=== PATIENT | male | born 1975 | race Caucasian/White ===

== ENCOUNTER 2017-02-07 18:53 | Emergency (ER) | payer SELFPAY ==
[~2017-02-07] VITALS: Ht 177.8 cm; Wt 74.5 kg
[2017-02-07 19:12] VITALS: Ht 177.8 cm; Wt 74.5 kg
[2017-02-08] MEDS ORDERED: FIORICET PO (12:06)
[2017-02-08] MEDS ORDERED: CIPR500T4 PO (22:32)
== END 2017-02-07 21:38 | disposition left against medical advice (07) ==
LOC: E/R 18:53
DX: Z53.21 Procedure and treatment not carried out due to patient leaving prior to being seen by health care provider (principal)

== ENCOUNTER 2017-02-08 07:47 | Emergency (ER) | payer OTHER ==
[~2017-02-08] VITALS: Ht 167.6 cm; Wt 75.0 kg
[2017-02-08 07:50] VITALS: Ht 167.6 cm; Wt 75.0 kg
--- NOTE | 2017-02-08 08:40 | RADRPT ---
PROCEDURE: Chest Radiograph. CLINICAL INDICATION: Chest and abdominal pain. TECHNIQUE: Single frontal chest radiograph. COMPARISON: None available FINDINGS: The cardiomediastinal silhouette is within normal limits. No infiltrate or effusion is seen. Th e bones are intact. IMPRESSION: 1. Unremarkable chest radiograph. RPTAT: KK .Shane Lundy MD, MD Date Time Electronically viewed and signed by .Shane Lundy MD, on 02/08/2017 08:40 .B/
[2017-02-08 08:56] LABS: ADD SCAN DIFF NO
[2017-02-08 09:00] LABS: ABNORMAL IP MESSAGE 1; BASOPHIL # 0.1 10^3/ul (0.0-0.1); BASOPHILS % 1.2 % (0.0-2.0); EOSINOPHILS % 0.1 % (0.0-7.0); HEMATOCRIT 45.5 % (42.0-52.0); HEMOGLOBIN 15.2 g/dl (14.0-18.0); LYMPHOCYTES # 2.1 10^3/ul (0.8-2.9); LYMPHOCYTES % 21.4 % (15.0-51.0); MEAN CORPUSCULAR HGB CONC 33.4 g/dl (32.0-37.0); MEAN CORPUSCULAR VOLUME 86.8 fl (82.0-101.0); MEAN PLATELET VOLUME 10.7 fl (7.4-10.4); MONOCYTE # 1.5 10^3/ul (0.3-0.9); MONOCYTES % 15.2 % (0.0-11.0); NEUTROPHIL # 6.1 10^3/ul (1.6-7.5); NEUTROPHILS % 61.6 % (39.0-77.0); PLATELET COUNT 281 10^3/UL (140-415); RED BLOOD COUNT 5.24 10^6/ul (4.70-6.10); RED CELL DISTRIBUTION WIDTH 11.7 % (11.5-14.5); WHITE BLOOD COUNT 9.9 10^3/ul (4.8-10.8)
--- NOTE | 2017-02-08 09:08 | ERD ---
ER Documentation Chief Complaint Date/Time DATE: 02/08/17 TIME: 08:53 Chief Complaint Sent from for evaluation TIA and CT of the head HPI 41-year-old male who presents to the emergency room with multiple complaints. It appears he was sent from an urgent care clinic for CT of the head for unclear reasons. The patient describes approximately 1 week of subjective fevers. He is unsure when his last seizure was but it has not been for several days. He states that he did have a sore throat last week but none today. He denies any significant cough rhinorrhea. No rash, no neck stiffness. He does describe a mild, gradual onset headache that is right sided but only 2 out of 10. The patient went to an urgent care clinic and was complaining of difficulty speaking and was sent to the emergency room. The patient states for approximately 4 days now he is having slow speech. He states that he can comprehend and speak clearly but this is slower than his baseline. ROS All systems reviewed and are negative except as per history of present illness. Medications Home Meds Active Scripts Acetamin/Butalbital/Caffeine* (Fioricet*) [id number] Tab, 1 TAB PO Q6H Y for PAIN, #30 TAB Prov:LEWIS MONTENEGRO MD 02/08/17 Allergies Allergies: Coded Allergies: amoxicillin (Unverified Allergy, Unknown, FLUSH RASH, 02/08/17) FmHx Family History: No diabetes Physical Exam Vitals Vital Signs Date Time Temp Pulse Resp B/P Pulse Ox O2 Delivery O2 Flow Rate FiO2 02/08/17 10:30 82 18 132/78 100 Room Air 02/08/17 07:50 98.3 93 20 124/92 98 Physical Exam General: Well developed, well nourished, no acute distress, slower speech however quick response time and appears somewhat inconsistent Head: Normocephalic, atraumatic. Eyes: Pupils equally reactive, EOM intact ENT: Moist mucous membranes Neck: Supple, no lymphadenopathy Respiratory: Lungs clear bilaterally, no distress Cardiovascular: RRR, no murmurs, rubs, or gallops Abdominal: Soft, non-tender, non-distended, no peritoneal signs : Deferred MSK: No edema, no unilateral swelling, 5/5 strength Neurologic: Alert and oriented, moving all extremities, slightly slow speech however articulate without dysarthria, no focal weakness, no cerebellar signs, no pronator drift, normal rapid alternating movements, steady gait, no meningismus Skin: No rash Psych: Normal mood Result Diagram: 02/08/17 0830 02/08/17 0830 Results 24 hrs Laboratory Tests Test 02/08/17 08:30 White Blood Count 9.910^3/ul Red Blood Count 5.2410^6/ul Hemoglobin 15.2g/dl Hematocrit 45.5% Mean Corpuscular Volume 86.8fl Mean Corpuscular Hemoglobin 29.0pg Mean Corpuscular Hemoglobin Concent 33.4g/dl Red Cell Distribution Width 11.7% Platelet Count 19476^3/UL Mean Platelet Volume 10.7fl Neutrophils % 61.6% Lymphocytes % 21.4% Monocytes % 15.2% Eosinophils % 0.1% Basophils % 1.2% Nucleated Red Blood Cells % 0.0/100WBC Neutrophils # 6.110^3/ul Lymphocytes # 2.110^3/ul Monocytes # 1.510^3/ul Eosinophils # 0.010^3/ul Basophils # 0.110^3/ul Nucleated Red Blood Cells # 0.010^3/ul Prothrombin Time 13.4Sec Prothrombin Time Ratio 1.0 INR International Normalized Ratio 1.02 Activated Partial Thromboplast Time 72.8Sec Sodium Level 135mmol/L Potassium Level 4.1mmol/L Chloride Level 95mmol/L Carbon Dioxide Level 30mmol/L Anion Gap 14 Blood Urea Nitrogen 19mg/dl Creatinine 1.27mg/dl Glucose Level 119mg/dl Calcium Level 9.4mg/dl Procedures/MDM EKG, MONITORS, & DIAGNOSTIC IMAGING: EKG: I reviewed and interpreted a 12-lead EKG. Rhythm: Normal sinus rhythm Ectopy: None Intervals: No abnormalities ST segments: No elevations or depressions T waves: No contiguous inversions Chest x-ray: I reviewed and interpreted a 1 view of the chest Mediastinum: No enlargement Cardiac silhouette: No cardiomegaly Airspace: Clear lung busby bilaterally without evidence of pneumothorax Bones: No evidence of fracture MRI brain: IMPRESSION: 1. No evidence of acute intracranial pathology. 2. Minimal nonspecific white matter change, which may reflect chronic small vessel ischemic change, possibly sequela of complicated migraine. RPTAT: VV LAB INTERPRETATION: No leukocytosis MEDICAL DECISION MAKING: The patient presents with an odd constellation of symptoms including subjective fevers, remote sore throat, mild headache and slow speech. His speech is inconsistent. He is seems to have a very quick response time however his speech is somewhat slow however the rate is inconsistent. He has no dysarthria and is speaking clearly and articulate. The patient does not have any other posterior circulation symptoms including no cerebellar symptoms, normal rapid alternating movements and steady gait without ataxia. It is unclear what is causing this, consider conversion disorder versus alternative intracranial process. The patient has no risk factors for stroke, therefore stroke seems extremely unlikely. Given subjective fevers I could consider possible intracranial abscess though again this seems unlikely given no significant headache no fever no rash and no leukocytosis. I believe the best course is to obtain an MRI of the brain to rule out these processes. The patient was referred for a CT of the brain but I do not believe this will provide significant enough information. The patient continues to be well-appearing in the emergency room and will be observed with repeat examinations. ER COURSE: The patient continues to be well-appearing, he continues to walk about the emergency room and does go to the bathroom without difficulty. The patient's speech pattern seems to be improving with time in the emergency room. His MRI is negative. Consider possible migraine as noted by the radiologist. The patient will be started on a course of Fioricet and referred to a primary care physician and neurologist. Return precautions discussed. The patient continues to be very well-appearing here. I kept the patient and/or family informed of laboratory and diagnostic imaging results throughout the emergency room course. DISPOSITION PLAN: We discussed follow up with the patient's primary care doctor within 24 to 48 hours as needed. We also discussed return to the emergency room for worsening symptoms or worsening condition. Outpatient referral: Neurology Discharge Medications: Fioricet Departure Diagnosis: Primary Impression: Slow rate of speech Additional Impression: Atypical migraine Condition: Stable LEWIS MONTENEGRO MD Feb 08, 2017 09:08
[2017-02-08 09:18] LABS: INR 1.02; PROTIME 13.4 Sec (12.2-14.2)
[2017-02-08 09:41] LABS: PARTIAL THROMBOPLASTIN TIME 72.8 Sec (25.0-35.0)
[2017-02-08 09:52] LABS: CALCIUM 9.4 mg/dl (8.4-10.2); CREATININE 1.27 mg/dl (0.61-1.24); POTASSIUM 4.1 mmol/L (3.5-5.1)
--- NOTE | 2017-02-08 11:25 | RADRPT ---
PROCEDURE: MRI Brain without contrast. CLINICAL INDICATION: Headache, slurred speech, slowed speech, remote fever, balance issues TECHNIQUE: Multiplanar MRI of the brain without contrast was performed on a 3.0 T scanner with the following sequences obtained: T1-weighted, T2-weighted/FLAIR, diffusion weighted (with ADC map), GR E. COMPARISON: None available FINDINGS: No acute/recent ischemic infarction or intracranial hemorrhage / blood degradation products are iden tified. No extra-axial fluid collection is seen. There is no mass effect. No midline shift is identified. The ventricles and sulci are within normal limits for size and configuration. A minimal area of increased T2-weighted FLAIR signal intensity is identified in the deep white matte r in the right frontal region, nonspecific. Flow voids are identified in the proximal intracranial arteries and dural sinuses suggesting patency . The mastoid air cells and paranasal sinuses are grossly clear. IMPRESSION: 1. No evidence of acute intracranial pathology. 2. Minimal nonspecific white matter change, which may reflect chronic small vessel ischemic change, possibly sequela of complicated migraine. RPTAT: VV .Sachin Archuleta MD, MD Date Time Electronically viewed and signed by .Sachin Archuleta MD, on 02/08/2017 11:25 .O/
[2017-02-08] MEDS ORDERED: FIORICET PO (12:06)
[2017-02-08 12:10] VITALS: BP 129/72; PULSE 80; RESP 18; TEMP 98.1
[2017-02-08] MEDS ORDERED: CIPR500T4 PO (22:32)
== END 2017-02-08 12:10 | disposition home or self-care (01) ==
LOC: E/R 07:47
DX: R47.89 Other speech disturbances (principal); G43.809 Other migraine, not intractable, without status migrainosus; R40.2142 Coma scale, eyes open, spontaneous, at arrival to emergency department; R40.2252 Coma scale, best verbal response, oriented, at arrival to emergency department; R40.2362 Coma scale, best motor response, obeys commands, at arrival to emergency department; R07.9 Chest pain, unspecified
CPT/HCPCS: 70551; 71010; 80048; 85025; 85610; 85730; 86703; 93005

== ENCOUNTER 2017-02-08 20:42 | Inpatient (IN) | payer OTHER ==
[~2017-02-08] VITALS: Ht 177.8 cm; Wt 75.0 kg
[~2017-02-08 20:42] MED LIST: FIORICET PO
--- NOTE | 2017-02-08 22:31 | ERD ---
ER Documentation Chief Complaint Date/Time DATE: 02/08/17 TIME: 22:30 Chief Complaint urinary retention , no urine output for 3 days HPI This 41-year-old male patient presents to emergency department with complaints of urinary retention and incontinence the last 3 days. Patient was seen and had a complete workup including MRI of brain earlier today complaint of this slow slurred speech. Patient was reportedly sent from urgent care for CT of the head. Patient has remote history of 1 week of fevers without sore throat rhinorrhea rash neck stiffness. Sent home with instructions to follow-up with primary care physician. Patient reports that he does not have a primary physician at this time. Reports that symptoms have been worsening, and that his bladder is distended, painful, reports urinary incontinence. Patient reports loose stools. No fecal incontinence. Denies any difficulty breathing speech is slow, motor function is jerky. Chart review ECG with documentation of normal sinus rhythm with no ST elevation or depressions. Chest x-ray reviewed by Dr. Uribe shows no mediastinum enlargement, no cardiomegaly, lungs clear with no evidence of pneumothorax MRI of the brain showed no evidence of acute intracranial pathology, minimal nonspecific white matter change which may reflect chronic small vessel ischemia change, possible sequela from complicated migraine. Laboratory findings without leukocytosis. ROS All systems reviewed and are negative except as per history of present illness. Medications Home Meds Active Scripts Ciprofloxacin Hcl* (Ciprofloxacin Hcl*) 500 Mg Tablet, 500 MG PO BID for 10 Days , TAB Prov:KODY,MELODY 02/08/17 Acetamin/Butalbital/Caffeine* (Fioricet*) [id number] Tab, 1 TAB PO Q6H Y for PAIN, #30 TAB Prov:LEWIS MONTENEGRO MD 02/08/17 Allergies Allergies: Coded Allergies: amoxicillin (Unverified Allergy, Unknown, FLUSH RASH, 02/08/17) PMhx/Soc Medical and Surgical Hx: pt denies Medical Hx, pt denies Surgical Hx History of Surgery: No Anesthesia Reaction: No Hx Neurological Disorder: No Hx Respiratory Disorders: No Hx Cardiac Disorders: No Hx Psychiatric Problems: No Hx Miscellaneous Medical Probl: No Hx Alcohol Use: Yes (OCCASSIONAL) Hx Substance Use: No Hx Tobacco Use: No Smoking Status: Never smoker Physical Exam Vitals Vital Signs Date Time Temp Pulse Resp B/P Pulse Ox O2 Delivery O2 Flow Rate FiO2 02/08/17 23:10 98.3 74 16 128/85 99 Room Air 02/08/17 20:43 99.5 88 20 131/84 98 Vitals stable, triage notes reviewed Physical Exam Const: [] Head: Atraumatic Eyes: Normal Conjunctiva ENT: Normal External Ears, Nose and Mouth. Neck: Full range of motion..~ No meningismus. Resp: Clear to auscultation bilaterally Cardio: Regular rate and rhythm, no murmurs Abd: Abdomen distended, low abdominal and pelvic tenderness, no CVA tenderness, Snow catheter placed by registered nurse, 1400 cc of urine removed and sent for culture and sensitivity, and tox screen. Skin: No petechiae or rashes Back: No midline or flank tenderness Ext: No cyanosis, or edema Neur: Awake and alert Psych: Normal Mood and Affect Result Diagram: 02/08/170 02/08/172309 Results 24 hrs Laboratory Tests Test 02/08/17 22:00 02/08/17 23:10 02/08/17 23:20 Urine Opiates Screen Negative Urine Barbiturates Negative Urine Amphetamines Screen Negative Urine Benzodiazepines Screen Negative Urine Cocaine Screen Negative Urine Cannabinoids Negative White Blood Count 10.010^3/ul Red Blood Count 4.9210^6/ul Hemoglobin 14.6g/dl Hematocrit 42.4% Mean Corpuscular Volume 86.2fl Mean Corpuscular Hemoglobin 29.7pg Mean Corpuscular Hemoglobin Concent 34.4g/dl Red Cell Distribution Width 11.4% Platelet Count 41024^3/UL Mean Platelet Volume 10.6fl Neutrophils % 66.4% Lymphocytes % 18.3% Monocytes % 13.3% Eosinophils % 0.3% Basophils % 1.0% Nucleated Red Blood Cells % 0.0/100WBC Neutrophils # 6.610^3/ul Lymphocytes # 1.810^3/ul Monocytes # 1.310^3/ul Eosinophils # 0.010^3/ul Basophils # 0.110^3/ul Nucleated Red Blood Cells # 0.010^3/ul Prothrombin Time 13.6Sec Prothrombin Time Ratio 1.1 INR International Normalized Ratio 1.04 Activated Partial Thromboplast Time 60.4Sec Sodium Level 132mmol/L Potassium Level 3.7mmol/L Chloride Level 93mmol/L Carbon Dioxide Level 28mmol/L Anion Gap 15 Blood Urea Nitrogen 16mg/dl Creatinine 1.18mg/dl Glucose Level 108mg/dl Lactic Acid Level 1.0mmol/L Calcium Level 9.2mg/dl Total Bilirubin 0.8mg/dl Direct Bilirubin 0.00mg/dl Indirect Bilirubin 0.8mg/dl Aspartate Amino Transf (AST/SGOT) 14IU/L Alanine Aminotransferase (ALT/SGPT) 28IU/L Alkaline Phosphatase 57IU/L Ammonia < 9umol/l Troponin I < 0.012ng/ml Total Protein 7.9g/dl Albumin 4.9g/dl Globulin 3.00g/dl Albumin/Globulin Ratio 1.63 Salicylates Level < 1.0mg/dl Acetaminophen Level < 10.0ug/ml Ethyl Alcohol Level < 10.0mg/dl Bedside Glucose 115mg/dL Drug tox screen negative Procedures/MDM This pleasant 41-year-old male patient presents to emergency department for distended abdomen, and urinary retention, with incontinence. History of neurologic changes presenting as slow speech, slow jerking movements patient has no prior history of a neurological disorder. guillain buitrago, myasthenia gravis, MS in working part of diagnoses. Urinary tract infection, benign prostate hypertrophy also considered, a Snow catheter was placed in usual technique by registered nurse 1400 cc of urine removed from bladder. Patient reports comfort. Snow catheter remains in place. Case discussed with supervising physician Dr. Caldwell . Original plan was to DC home with leg bag and Cipro. After MD evaluation plan to admit for neurologic consult. All care turned over to Dr Rogers and Dr Anthony at this time for admission. Departure Diagnosis: Primary Impression: Retention of urine Patient Instructions: Urinary Retention, RON Cronin Feb 08, 2017 22:31
[2017-02-08] MEDS ORDERED: CIPR500T4 PO (22:32)
[2017-02-08 22:34] LABS: BARBITURATES Negative (NEGATIVE); BENZODIAZEPINES Negative (NEGATIVE); CANNABINOIDS Negative (NEGATIVE); COCAINE Negative (NEGATIVE); OPIATES Negative (NEGATIVE)
[2017-02-08 23:38] LABS: BASOPHIL # 0.1 10^3/ul (0.0-0.1); EOSINOPHILS % 0.3 % (0.0-7.0); HEMATOCRIT 42.4 % (42.0-52.0); HEMOGLOBIN 14.6 g/dl (14.0-18.0); LYMPHOCYTES # 1.8 10^3/ul (0.8-2.9); LYMPHOCYTES % 18.3 % (15.0-51.0); MEAN CORPUSCULAR HEMOGLOBIN 29.7 pg (29.0-33.0); MEAN CORPUSCULAR HGB CONC 34.4 g/dl (32.0-37.0); MEAN CORPUSCULAR VOLUME 86.2 fl (82.0-101.0); MEAN PLATELET VOLUME 10.6 fl (7.4-10.4); MONOCYTE # 1.3 10^3/ul (0.3-0.9); MONOCYTES % 13.3 % (0.0-11.0); NEUTROPHIL # 6.6 10^3/ul (1.6-7.5); NEUTROPHILS % 66.4 % (39.0-77.0); PLATELET COUNT 278 10^3/UL (140-415); RED BLOOD COUNT 4.92 10^6/ul (4.70-6.10); RED CELL DISTRIBUTION WIDTH 11.4 % (11.5-14.5)
--- NOTE | 2017-02-08 23:51 | RADRPT ---
PROCEDURE: XR Chest. CLINICAL INDICATION: Dyspnea and sepsis TECHNIQUE: AP Portable chest. COMPARISON: 02/08/2017 08:27 a.m. chest x-ray FINDINGS: The soft tissues and bones are normal. No focal infiltrates, masses, or effusions are noted. The m ediastinum and heart are normal. No pneumothorax is present. IMPRESSION: 1. No radiographic evidence for acute cardiopulmonary disease RPTAT: HD .Maria L Freitas MD, Date Time Electronically viewed and signed by .Maria L Freitas MD, on 02/08/2017 23:50 .C/
[2017-02-08 23:54] LABS: INR 1.04; PROTIME 13.6 Sec (12.2-14.2); PT RATIO 1.1
[2017-02-08 23:55] LABS: PARTIAL THROMBOPLASTIN TIME 60.4 Sec (25.0-35.0)
[2017-02-08 23:59] LABS: ALANINE AMINOTRANSFERASE 28 IU/L (13-69); ALBUMIN 4.9 g/dl (3.3-4.9); ALBUMIN/GLOBULIN RATIO 1.63; ALKALINE PHOSPHATASE 57 IU/L (42-121); ANION GAP 15 (8-16); ASPARTATE AMINO TRANSFERASE 14 IU/L (15-46); BILIRUBIN,INDIRECT 0.8 mg/dl (0-1.1); BILIRUBIN,TOTAL 0.8 mg/dl (0.2-1.3); BLOOD UREA NITROGEN 16 mg/dl (7-20); CALCIUM 9.2 mg/dl (8.4-10.2); CARBON DIOXIDE 28 mmol/L (21-31); CHLORIDE 93 mmol/L (97-110); CREATININE 1.18 mg/dl (0.61-1.24); GLUCOSE 108 mg/dl (70-220); POTASSIUM 3.7 mmol/L (3.5-5.1); SODIUM 132 mmol/L (135-144); TOTAL PROTEIN 7.9 g/dl (6.1-8.1)
[2017-02-09] VITALS (15 sets, daily range): BP systolic 119–149; BP diastolic 79–90; PULSE 68–84; RESP 17–20; TEMP 98.3; Ht 177.8 cm; Wt 75.0 kg
[2017-02-09 00:15] LABS: ACETAMINOPHEN < 10.0 ug/ml (10.0-30.0); AMMONIA < 9 umol/l (9-30); ETHANOL < 10.0 mg/dl; SALICYLATE < 1.0 mg/dl (5.0-30.0); TROPONIN-I < 0.012 ng/ml (0.00-0.12)
[2017-02-09] MEDS ORDERED: ONDANSETRON 4 MG INJ IV PRN (01:30)
[2017-02-09 01:39] LABS: ADD SCAN DIFF NO
[2017-02-09] MEDS: SOD CHLORIDE 0.9% 1,000 ML IV SCH ×4 (03:30→19:35)
--- NOTE | 2017-02-09 04:42 | ERA ---
ER Documentation Chief Complaint Date/Time DATE: 02/09/17 TIME: 23:00 Chief Complaint urinary retention , slurred speech HPI The patient is a 41-year-old male, presenting to the ER because of inability to urinate for the last 3 days, inability to walk well, and slurred speech for the last 3 days. He was seen at urgent care yesterday where he had a negative brain CT and refer to ER for evaluation. He was seen earlier today in the ER and had a negative brain MRI. He was then discharged. He came back to the ER because of inability to urinate and slurred speech and unable to walk well. He had fever about 2 weeks ago that went away by itself. He complains of minimal headache, denies facial pain, neck pain, chest pain, abdominal pain, vomiting, diarrhea, constipation. He does not smoke or drink. He was also seen today by the PA Past medical/surgical history: None ROS All systems reviewed and are negative except as per history of present illness. Medications Home Meds Active Scripts Ciprofloxacin Hcl* (Ciprofloxacin Hcl*) 500 Mg Tablet, 500 MG PO BID for 10 Days , TAB Prov:RON GATES 02/08/17 Acetamin/Butalbital/Caffeine* (Fioricet*) [id number] Tab, 1 TAB PO Q6H Y for PAIN, #30 TAB Prov:LEWIS MONTENEGRO MD 02/08/17 Allergies Allergies: Coded Allergies: amoxicillin (Unverified Allergy, Unknown, FLUSH RASH, 02/08/17) PMhx/Soc Medical and Surgical Hx: pt denies Medical Hx, pt denies Surgical Hx History of Surgery: No Anesthesia Reaction: No Hx Neurological Disorder: No Hx Respiratory Disorders: No Hx Cardiac Disorders: No Hx Psychiatric Problems: No Hx Miscellaneous Medical Probl: No Hx Alcohol Use: Yes (occasional) Hx Substance Use: No Hx Tobacco Use: No Smoking Status: Never smoker Physical Exam Vitals Vital Signs Date Time Temp Pulse Resp B/P Pulse Ox O2 Delivery O2 Flow Rate FiO2 02/08/17 23:10 98.3 74 16 128/85 99 Room Air 02/08/17 20:43 99.5 88 20 131/84 98 Physical Exam Const: No acute distress. Head: Atraumatic. Eyes: Normal Conjunctiva. ENT: Normal External Ears, Nose and Mouth. Neck: Full range of motion. No meningismus. Resp: Clear to auscultation bilaterally. Cardio: Regular rate and rhythm. Abd: Soft, non distended, normal bowel sounds, non tender. Skin: No petechiae or rashes. Back: No midline or flank tenderness. Ext: No cyanosis, or edema. Neur: Awake and alert. No focal deficit, slurred speech Psych: Normal Mood and Affect. Result Diagram: 02/08/17 2310 02/08/17 2310 Results 24 hrs Laboratory Tests Test 02/08/17 22:00 02/08/17 23:10 02/08/17 23:20 Urine Opiates Screen Negative Urine Barbiturates Negative Urine Amphetamines Screen Negative Urine Benzodiazepines Screen Negative Urine Cocaine Screen Negative Urine Cannabinoids Negative White Blood Count 10.010^3/ul Red Blood Count 4.9210^6/ul Hemoglobin 14.6g/dl Hematocrit 42.4% Mean Corpuscular Volume 86.2fl Mean Corpuscular Hemoglobin 29.7pg Mean Corpuscular Hemoglobin Concent 34.4g/dl Red Cell Distribution Width 11.4% Platelet Count 76825^3/UL Mean Platelet Volume 10.6fl Neutrophils % 66.4% Lymphocytes % 18.3% Monocytes % 13.3% Eosinophils % 0.3% Basophils % 1.0% Nucleated Red Blood Cells % 0.0/100WBC Neutrophils # 6.610^3/ul Lymphocytes # 1.810^3/ul Monocytes # 1.310^3/ul Eosinophils # 0.010^3/ul Basophils # 0.110^3/ul Nucleated Red Blood Cells # 0.010^3/ul Prothrombin Time 13.6Sec Prothrombin Time Ratio 1.1 INR International Normalized Ratio 1.04 Activated Partial Thromboplast Time 60.4Sec Sodium Level 132mmol/L Potassium Level 3.7mmol/L Chloride Level 93mmol/L Carbon Dioxide Level 28mmol/L Anion Gap 15 Blood Urea Nitrogen 16mg/dl Creatinine 1.18mg/dl Glucose Level 108mg/dl Lactic Acid Level 1.0mmol/L Calcium Level 9.2mg/dl Total Bilirubin 0.8mg/dl Direct Bilirubin 0.00mg/dl Indirect Bilirubin 0.8mg/dl Aspartate Amino Transf (AST/SGOT) 14IU/L Alanine Aminotransferase (ALT/SGPT) 28IU/L Alkaline Phosphatase 57IU/L Ammonia < 9umol/l Troponin I < 0.012ng/ml Total Protein 7.9g/dl Albumin 4.9g/dl Globulin 3.00g/dl Albumin/Globulin Ratio 1.63 Salicylates Level < 1.0mg/dl Acetaminophen Level < 10.0ug/ml Ethyl Alcohol Level < 10.0mg/dl Bedside Glucose 115mg/dL Procedures/[place] [address] Radiology Main Line: [phone] DIAGNOSTIC IMAGING REPORT Patient: NANCY COREA : 1975 Age: 41 Sex: M MR #: [id number] DOS: 02/08/17 2301 Ordering MD: LENA ZUNIGA MD Location: [facility] Room/Bed: PROCEDURE: XR Chest. CLINICAL INDICATION: Dyspnea and sepsis TECHNIQUE: AP Portable chest. COMPARISON: 02/08/2017 08:27 a.m. chest x-ray FINDINGS: The soft tissues and bones are normal. No focal infiltrates, masses, or effusions are noted. The mediastinum and heart are normal. No pneumothorax is present. IMPRESSION: 1. No radiographic evidence for acute cardiopulmonary disease RPTAT: [facility] .Maria L Freitas MD, Date Time Electronically viewed and signed by .Maria L Freitas MD, MD on 02/08/2017 23: 50 .C/ CC: LENA ZUNIGA MD EKG: Read by emergency physician Rate/Rhythm: Normal Sinus Rhythm 71 beats/min QRS, ST, T-waves: No ST elevation, no T inversion Impression: Normal EKG MEDICAL MAKING DECISION: The patient is a 41-year-old male, presenting with acute urinary retention, acute slurred speech and acute ataxia of unclear etiology. He was treated with Snow catheter that drained out about 1500 cc of urine with spontaneous relief The differential diagnoses considered include but are not limited to normal partial hydrocephalus, encephalitis, meningitis, CVA Departure Diagnosis: Primary Impression: Retention of urine Additional Impressions: Slurred speech Ataxia Condition: Stable Patient Instructions: Urinary Retention, Male Additional Instructions: I discussed the findings with the patient. I discussed the patient with his physician Dr. Rosa who was made aware of the lab, the treatment, the patient condition. The patient is admitted to telemetry for further evaluation The patient's blood pressure was elevated (>120/80) but appears stable without evidence of hypertension emergency or urgency. The patient was counseled about the risks of hypertension and urged to pursue outpatient monitoring and therapy within a week with their primary care physician. SHANTA DALY MD Feb 09, 2017 04:42
[2017-02-09 07:29] LABS: BASOPHIL # 0.1 10^3/ul (0.0-0.1); BASOPHILS % 1.3 % (0.0-2.0); EOSINOPHILS # 0.1 10^3/ul (0.0-0.5); EOSINOPHILS % 1.5 % (0.0-7.0); HEMATOCRIT 39.9 % (42.0-52.0); HEMOGLOBIN 13.7 g/dl (14.0-18.0); LYMPHOCYTES % 29.7 % (15.0-51.0); MEAN CORPUSCULAR HEMOGLOBIN 29.5 pg (29.0-33.0); MEAN CORPUSCULAR HGB CONC 34.3 g/dl (32.0-37.0); MEAN CORPUSCULAR VOLUME 85.8 fl (82.0-101.0); MEAN PLATELET VOLUME 11.5 fl (7.4-10.4); MONOCYTES % 14.7 % (0.0-11.0); NEUTROPHIL # 3.6 10^3/ul (1.6-7.5); NEUTROPHILS % 52.4 % (39.0-77.0); PLATELET COUNT 228 10^3/UL (140-415); RED BLOOD COUNT 4.65 10^6/ul (4.70-6.10); RED CELL DISTRIBUTION WIDTH 11.4 % (11.5-14.5); WHITE BLOOD COUNT 6.9 10^3/ul (4.8-10.8)
[2017-02-09 07:33] LABS: ADD SCAN DIFF NO
[2017-02-09 08:02] LABS: ALBUMIN 4.2 g/dl (3.3-4.9); ALBUMIN/GLOBULIN RATIO 1.55; BILIRUBIN,INDIRECT 0.7 mg/dl (0-1.1); BILIRUBIN,TOTAL 0.7 mg/dl (0.2-1.3); CALCIUM 8.9 mg/dl (8.4-10.2); CHOL/HDL RATIO 7.1 RATIO; CREATININE 0.9 mg/dl (0.61-1.24); POTASSIUM 4.4 mmol/L (3.5-5.1); TOTAL PROTEIN 6.9 g/dl (6.1-8.1)
[2017-02-09 08:23] LABS: PROSTATE SPECIFIC ANTIGEN 0.4 ng/ml (0.0-4.0)
[2017-02-09] MEDS: ACETAMINOPHEN 325 MG TAB PO PRN ×2 (09:11→22:36)
--- NOTE | 2017-02-09 13:11 | HP ---
Date/Time of Note Date/Time of Note DATE: 02/09/17 TIME: 13:05 Assessment/Plan VTE Prophylaxis VTE Prophylaxis Intervention: anti-embolic stocking Lines/Catheters IV Catheter Type (from Nrs): Peripheral IV Urinary Cath still in place: Yes Reason Cath still needed: urinary retention Assessment/Plan Assessment/Plan 1. neuro: patient with speech difficulty, uncelar etiology, negative MR yesterday. Possibly post viral? 2. urinary retention unclear cause, awit UA,, cont lamar 9b) obtain MRI of spinal cord to eval (c) ?syringomyelia of medulla accounts for speech and urinary and gait symptoms (c) obtain b12, folate, chloé, ra, hiv testing 3. gait instability, check PT, 4. prolonged PTT, check 50:50 mix, ?cardiolipin ab ?phospholipid ab HPI/ROS Admit Date/Time Admit Date/Time Feb 09, 2017 at 01:11 Hx of Present Illness patient presents with difficulty with slow NOT slurred speech. He has difficulty speakin gin the usual pace, but words are clear and he articulates what he means to say in addition he has utrinary retention for the last 3 days, s/p lamar. He denies dysuria, denies stool retention, denies saddlea anasthesia, states that there are soem difficulties with walkiong and feeling unsteady but no falls he does acjknowledge a 1 week history of undiagnosed high fevers which spontaenously resolved aound 1 week ago. PMH/Family/Social Past Medical History nil Past Surgical History nil Family History Significant Family History: no pertinent family hx Social History unemployed lives at home with femal partner Alcohol Use: rarely Smoking Status: Never smoker Drug Use: none Exam/Review of Systems Vital Signs Vitals Vital Signs Date Time Temp Pulse Resp B/P Pulse Ox O2 Delivery O2 Flow Rate FiO2 02/09/17 12:38 84 02/09/17 11:38 98.2 18 122/83 97 02/09/17 01:31 Room Air Intake and Output 02/08/17 02/08/17 02/09/17 15:00 23:00 07:00 Intake Total 50 ml Output Total 3000 ml Balance -2950 ml Exam Constitutional: alert, oriented Psych: no complaints Head: normocephalic Eyes: EOMI, nl conjunctiva, nl lids ENMT: nl external ears & nose, nl lips & teeth, nl nasal mucosa & septum Neck: non-tender, supple Respiratory: clear to auscultation Cardiovascular: regular rate and rhythm Gastrointestinal: non-tender, soft Musculoskeletal: nl extremities to inspection, nl gait and stance Neurological: RELIEF DOCKING MASTER II-XII intact, nl mental status, other (some difficulty with pace of speech that seems to improve during the interview, no truncal instability appreciated) Skin: rash or lesions Labs Result Diagram: 02/09/1763202/09/17632 Medications Medications Current Medications Sodium Chloride (NS) 1,000 ml @ 125 mls/hr Q8H IV Last administered on 10:11; Admin Dose 125 MLS/HR; Start 02/09/17 at 01:30 Acetaminophen (Tylenol Tab) 650 mg Q4H PRN PO FEVER Last administered on 09:11; Admin Dose 650 MG; Start 02/09/17 at 01:30 Ondansetron HCl (Zofran Inj) 4 mg Q4H PRN IV NAUSEA AND/OR VOMITING; Start at 01:30 ZAK FAYE MD Feb 09, 2017 13:11
[2017-02-09 13:40] LABS: ADD UMIC NO; UR ASCORBIC ACID NEGATIVE (NEGATIVE); UR BILIRUBIN (Dip) NEGATIVE (NEGATIVE); UR BLOOD (Dip) NEGATIVE (NEGATIVE); UR CLARITY CLEAR (CLEAR); UR COLOR YELLOW (YELLOW); UR GLUCOSE (Dip) NEGATIVE (NEGATIVE); UR KETONES (Dip) NEGATIVE (NEGATIVE); UR LEUKOCYTE ESTERASE (Dip) NEGATIVE Leu/ul (NEGATIVE); UR NITRITE (Dip) NEGATIVE (NEGATIVE); UR SPECIFIC GRAVITY (Dip) 1.008 (1.003-1.030); UR TOTAL PROTEIN (Dip) NEGATIVE (NEGATIVE); UR UROBILINOGEN (Dip) 1+ mg/dL (NEGATIVE)
[2017-02-09 14:22] LABS: BASOPHIL # 0.1 10^3/ul (0.0-0.1); BASOPHILS % 1.2 % (0.0-2.0); EOSINOPHILS # 0.1 10^3/ul (0.0-0.5); HEMATOCRIT 40.4 % (42.0-52.0); HEMOGLOBIN 13.6 g/dl (14.0-18.0); LYMPHOCYTES % 29.3 % (15.0-51.0); MEAN CORPUSCULAR HEMOGLOBIN 29.2 pg (29.0-33.0); MEAN CORPUSCULAR HGB CONC 33.7 g/dl (32.0-37.0); MEAN CORPUSCULAR VOLUME 86.7 fl (82.0-101.0); MEAN PLATELET VOLUME 10.8 fl (7.4-10.4); MONOCYTES % 14.5 % (0.0-11.0); NEUTROPHIL # 3.6 10^3/ul (1.6-7.5); PLATELET COUNT 227 10^3/UL (140-415); RED BLOOD COUNT 4.66 10^6/ul (4.70-6.10); RED CELL DISTRIBUTION WIDTH 11.6 % (11.5-14.5); WHITE BLOOD COUNT 6.9 10^3/ul (4.8-10.8)
[2017-02-09 14:32] LABS: ALANINE AMINOTRANSFERASE 21 IU/L (13-69); ALBUMIN 4.1 g/dl (3.3-4.9); ALBUMIN/GLOBULIN RATIO 1.46; ALKALINE PHOSPHATASE 48 IU/L (42-121); ANION GAP 17 (8-16); ASPARTATE AMINO TRANSFERASE 12 IU/L (15-46); BILIRUBIN,INDIRECT 0.7 mg/dl (0-1.1); BILIRUBIN,TOTAL 0.7 mg/dl (0.2-1.3); BLOOD UREA NITROGEN 13 mg/dl (7-20); CALCIUM 9.1 mg/dl (8.4-10.2); CARBON DIOXIDE 28 mmol/L (21-31); CHLORIDE 99 mmol/L (97-110); CREATININE 0.93 mg/dl (0.61-1.24); GLUCOSE 101 mg/dl (70-220); POTASSIUM 4.2 mmol/L (3.5-5.1); SODIUM 140 mmol/L (135-144); TOTAL PROTEIN 6.9 g/dl (6.1-8.1)
[2017-02-09 14:42] LABS: ADD SCAN DIFF NO; PARTIAL THROMBOPLASTIN TIME 55.1 Sec (25.0-35.0)
[2017-02-09 15:53] LABS: FOLATE 7.4 ng/ml (2.8-20.0)
[2017-02-09 17:21] LABS: RAPID PLASMA REAGIN NONREACTIVE (NR); RHEUMATOID FACTOR NEGATIVE (NEGATIVE)
[2017-02-09 19:42] LABS: 50/50 PTT 1 HOUR 51.4 Sec
[2017-02-09 19:47] LABS: 50/50 PTT IMMED 44.5 Sec
[2017-02-10] VITALS (12 sets, daily range): BP systolic 125–142; BP diastolic 80–87; PULSE 57–78; RESP 17–21
[2017-02-10] MEDS: SOD CHLORIDE 0.9% 1,000 ML IV SCH (04:22)
--- NOTE | 2017-02-10 12:45 | PN ---
Date/Time of Note Date/Time of Note DATE: 02/10/17 TIME: 12:44 Assessment/Plan VTE Prophylaxis VTE Prophylaxis Intervention: other Lines/Catheters IV Catheter Type (from Nrsg): Peripheral IV Urinary Cath still in place: Yes Reason Cath still needed: urinary retention Assessment/Plan Assessment/Plan 1. speech difficulty improved today, cont to observe 2. urinary retention, cont lamar, await neuro and MRI evals 3. able to walk some with walker and PT, cont current Subjective 24 Hr Interval Summary Free Text/Dictation no complaints, Exam/Review of Systems Vital Signs Vitals Vital Signs Date Time Temp Pulse Resp B/P Pulse Ox O2 Delivery O2 Flow Rate FiO2 02/10/17 12:00 57 02/10/17 11:26 97.7 18 125/82 95 02/09/17 01:31 Room Air Intake and Output 02/09/17 02/09/17 02/10/17 15:00 23:00 07:00 Intake Total 500 ml 1700 ml Output Total 1000 ml Balance 500 ml 700 ml Exam Constitutional: alert Respiratory: clear to auscultation Cardiovascular: regular rate and rhythm Results Result Diagram: 02/09/17 1400 02/09/17 1400 Results 24 hrs Laboratory Tests Test 02/09/17 13:00 02/09/17 14:00 Urine Color YELLOW Urine Clarity CLEAR Urine pH 7.0 Urine Specific [place] 1.008 Urine Ketones NEGATIVE Urine Nitrite NEGATIVE Urine Bilirubin NEGATIVE Urine Urobilinogen 1+ H Urine Leukocyte Esterase NEGATIVE Urine Hemoglobin NEGATIVE Urine Glucose NEGATIVE Urine Total Protein NEGATIVE White Blood Count 6.9 Red Blood Count 4.66 L Hemoglobin 13.6 L Hematocrit 40.4 L Mean Corpuscular Volume 86.7 Mean Corpuscular Hemoglobin 29.2 Mean Corpuscular Hemoglobin Concent 33.7 Red Cell Distribution Width 11.6 Platelet Count 227 Mean Platelet Volume 10.8 H Neutrophils % 52.0 Lymphocytes % 29.3 Monocytes % 14.5 H Eosinophils % 2.0 Basophils % 1.2 Nucleated Red Blood Cells % 0.0 Neutrophils # 3.6 Lymphocytes # 2.0 Monocytes # 1.0 H Eosinophils # 0.1 Basophils # 0.1 Nucleated Red Blood Cells # 0.0 Activated Partial Thromboplast Time 55.1 H Mix PTT Normal Plasma Immediate 44.5 Mix PTT Normal Plasma 1 Hour 51.4 Sodium Level 140 Potassium Level 4.2 Chloride Level 99 Carbon Dioxide Level 28 Anion Gap 17 H Blood Urea Nitrogen 13 Creatinine 0.93 Glucose Level 101 Calcium Level 9.1 Total Bilirubin 0.7 Direct Bilirubin 0.00 Indirect Bilirubin 0.7 Aspartate Amino Transf (AST/SGOT) 12 L Alanine Aminotransferase (ALT/SGPT) 21 Alkaline Phosphatase 48 Total Protein 6.9 Albumin 4.1 Globulin 2.80 Albumin/Globulin Ratio 1.46 Vitamin B12 Level > 1000 H Folate 7.4 Rheumatoid Factor Screen NEGATIVE Rapid Plasma Reagin NONREACTIVE HIV (1&2) Antibody NEGATIVE Medications Medications Current Medications Sodium Chloride (NS) 1,000 ml @ 125 mls/hr Q8H IV Last administered on 04:22; Admin Dose 125 MLS/HR; Start 02/09/17 at 01:30 Acetaminophen (Tylenol Tab) 650 mg Q4H PRN PO FEVER Last administered on 22:36; Admin Dose 650 MG; Start 02/09/17 at 01:30 Ondansetron HCl (Zofran Inj) 4 mg Q4H PRN IV NAUSEA AND/OR VOMITING; Start at 01:30 ZAK FAYE MD Feb 10, 2017 12:45
[2017-02-10 13:45] LABS: ANA SCREEN NEGATIVE (NEGATIVE)
--- NOTE | 2017-02-10 15:25 | RADRPT ---
PROCEDURE: MRI Cervical spine without contrast CLINICAL INDICATION: Urinary retention TECHNIQUE: An MRI of the cervical spine was performed utilizing the following sequences: Sagittal T1 weighted, sagittal and axial T2 weighted, axial GREand sagittal STIR. COMPARISON: None FINDINGS: There is a normal cervical lordosis. No acute vertebral compression fracture. No diffuse marrow re placing process. The cervical cord demonstrates normal signal intensity. C2-3: The disk is preserved height. No significant disk protrusion, spinal canal or foraminal sten osis. C3-4: The disk is preserved height. No significant disk protrusion, spinal canal or foraminal randal nosis. C4-5: The disk is preserved height. No spinal canal stenosis. Uncovertebral osteophytes with Mini mal right greater than left foraminal narrowing. C5-6: The disk is preserved height. No significant disk protrusion, spinal canal or foraminal steno sis. C6-7: The disk is preserved height. No significant disk protrusion, spinal canal or foraminal sten osis. C7-T1: The disk is preserved height. No significant disk protrusion, spinal canal or foraminal randal nosis. Paraspinal soft tissues are unremarkable. IMPRESSION: Minimal right greater than left foraminal narrowing C4-5. No spinal canal stenosis. No evidence of cord compression or cord edema. RPTAT: AA .Bandar Chowdhury MD, Date Time Electronically viewed and signed by .Bandar Chowdhury MD, MD on 02/10/2017 15:25 .T/
--- NOTE | 2017-02-10 15:33 | RADRPT ---
PROCEDURE: MRI Thoracic spine without contrast CLINICAL INDICATION: There are tissue TECHNIQUE: An MRI of the thoracic spine was performed on a high resolution MRI scanner utilizing t he following sequences: Sagittal and axial T1 weighted, sagittal and axial T2 weighted, and sagitta l T2 weighted with fat saturation. COMPARISON: None FINDINGS: Normal thoracic kyphosis. No acute thoracic vertebral compression fracture. No diffuse marrow replacing process. Small posterior T5 vertebral hemangioma. 2 mm right central disk protrusion T7-8 contacts the ventral cord surface without significant spinal canal stenosis. 1mm linear T2 hyperintense signal within the central cord at T7 and T8 is noted. IMPRESSION: 2 mm right central disk protrusion T7-8 contacts the ventral cord surface. 1mm linear T2 hyperintens e signal within the central cord at T7 and T8 is noted. This may represent focal persistence of the central canal or a small cord syrinx. Recommend attention on interval follow-up MRI. No significant thoracic spinal canal or foraminal stenosis identified. RPTAT: AA .Bandar Chowdhury MD, MD Date Time Electronically viewed and signed by .Bandar Chowdhury MD, on 02/10/2017 15:33 .T/
--- NOTE | 2017-02-10 15:35 | RADRPT ---
PROCEDURE: MRI lumbar spine without contrast CLINICAL INDICATION: Urinary retention TECHNIQUE: An high-resolution MRI of the lumbar spine was performed utilizing the following sequen gary: Sagittal and axial T1 weighted, sagittal and axial T2 weighted, and sagittal fat suppressed T2. COMPARISON: None FINDINGS: No acute vertebral compression fracture. No evidence of a diffuse marrow replacing process. The conus medullaris terminates at L1. T12 - L1: The disk is preserved in height. There is no significant disk protrusion, spinal canal or foraminal stenosis. L1 - L2: The disk is preserved in height. There is no significant disk protrusion, spinal canal or foraminal stenosis. L2 - L3: The disk is preserved in height. There is no significant disk protrusion, spinal canal or foraminal stenosis. L3 - L4: The disk is preserved in height. There is no significant disk protrusion, spinal canal or foraminal stenosis. L4 - L5: The disk is preserved in height. There is no significant disk protrusion, spinal canal o r foraminal stenosis. L5 - S1: Mild disk height loss posteriorly. Mild bulging of the posterior disk annulus with a andrey tral disk annular fissure. No spinal canal or foraminal narrowing. Paraspinal soft tissues are unremarkable. IMPRESSION: L5 - S1: Mild disk height loss posteriorly. Mild bulging of the posterior disk annulus with a andrey tral disk annular fissure. No lumbar spinal canal or foraminal narrowing. RPTAT: AA .Bandar Chowdhury MD, MD Date Time Electronically viewed and signed by .Bandar Chowdhury MD, MD on 02/10/2017 15:35 .T/
--- NOTE | 2017-02-10 16:34 | CONS ---
Date/Time of Note Date/Time of Note DATE: 02/10/17 TIME: 16:11 Assessment/Plan Assessment/Plan Chief Complaint/Hosp Course A/P: hx of febrile illness 10 week ago x 1 week, pt presented with dysathria, unsteadiness of gait, urinary retention, normal MRI w/o contrast. Plan: LP, MRI postcontrast Problems: Consultation Date/Type/Reason Admit Date/Time Feb 09, 2017 at 01:11 Type of Consultation: neurology Hx of Present Illness 41 y/o with no PMHx, febrile sore throat x 1 week, started 10 days ago, c/o slurred speech, ataxia of gait x 5 days, getting better. Occasional secon lasting right temporal pain for seconds twice daily x few days. Overall getting better. Also severe urinary retention x few days. MRI brain and spine essentially normal, T 7-8 disc abutting cord, possible 1 mm syrinx vs central canal at this level. No weakness, numbness, diplopia, vertigo. Psychological: no complaints Past Medical History Medical History: no pertinent history Family History Significant Family History: no pertinent family hx Social History Alcohol Use: none Smoking Status: Never smoker Drug Use: none Exam/Review of Systems Vital Signs Vitals Vital Signs Date Time Temp Pulse Resp B/P Pulse Ox O2 Delivery O2 Flow Rate FiO2 02/10/17 12:00 57 02/10/17 11:26 97.7 18 125/82 95 02/09/17 01:31 Room Air Intake and Output 02/09/17 02/09/17 02/10/17 15:00 23:00 07:00 Intake Total 500 ml 1700 ml Output Total 1000 ml Balance 500 ml 700 ml Exam Neuro Exam: AOX3, fluent speech, min slow, but no dysarthria CN II-Xii intact, except fixed 2 mm pupils, fine endgaze nystagmus upgaze and horizontal Motor normal bulk, tone, strength Sensory pain and vibration OK, no sensory level Coordination OK Slightly ataxic walk, especially tandem Constitutional: alert, oriented, well developed Head: atraumatic, normocephalic Neck: non-tender, supple Respiratory: clear to auscultation Cardiovascular: regular rate and rhythm Gastrointestinal: soft Results Result Diagram: 02/09/17 1400 02/09/17 1400 Medications Medications Current Medications Acetaminophen (Tylenol Tab) 650 mg Q4H PRN PO FEVER Last administered on t 22:36; Admin Dose 650 MG; Start 02/09/17 at 01:30 Ondansetron HCl (Zofran Inj) 4 mg Q4H PRN IV NAUSEA AND/OR VOMITING; Start at 01:30 EWA NGUYEN MD Feb 10, 2017 16:22
[2017-02-10] MEDS: ACETAMINOPHEN 325 MG TAB PO PRN (17:34)
[2017-02-11] VITALS (10 sets, daily range): BP systolic 123–128; BP diastolic 77–81; PULSE 65–75; RESP 18–20
--- NOTE | 2017-02-11 10:24 | PN ---
Date/Time of Note Date/Time of Note DATE: 02/11/17 TIME: 10:22 Assessment/Plan VTE Prophylaxis VTE Prophylaxis Intervention: ambulation Lines/Catheters IV Catheter Type (from Nrsg): Peripheral IV Urinary Cath still in place: Yes Reason Cath still needed: urinary retention Assessment/Plan Assessment/Plan 1. neuro: await LP, mri noted appreciate neuro input 2. urinary retention, plan home with catheter and follow with urology if neuro workup not revelina 3. heme: prolonged ptt, heme eval Subjective 24 Hr Interval Summary Free Text/Dictation speech better wal;mora better Exam/Review of Systems Vital Signs Vitals Vital Signs Date Time Temp Pulse Resp B/P Pulse Ox O2 Delivery O2 Flow Rate FiO2 02/11/17 08:24 73 02/11/17 07:36 97.7 19 126/77 96 02/09/17 01:31 Room Air Intake and Output 02/10/17 02/10/17 02/11/17 15:00 23:00 07:00 Intake Total 1350 ml 700 ml Output Total 3000 ml 650 ml Balance -1650 ml 50 ml Exam Constitutional: alert Respiratory: clear to auscultation Cardiovascular: regular rate and rhythm Gastrointestinal: soft Results Result Diagram: 02/09/17 1400 02/09/17 1400 Medications Medications Current Medications Acetaminophen (Tylenol Tab) 650 mg Q4H PRN PO FEVER Last administered on t 17:34; Admin Dose 650 MG; Start 02/09/17 at 01:30 Ondansetron HCl (Zofran Inj) 4 mg Q4H PRN IV NAUSEA AND/OR VOMITING; Start at 01:30 ZAK FAYE MD Feb 11, 2017 10:23
--- NOTE | 2017-02-11 11:40 | CONS ---
Date/Time of Note Date/Time of Note DATE: 02/11/17 TIME: 11:37 Consult Date/Type/Reason Admit Date/Time Feb 09, 2017 at 01:11 Initial Consult Date Type of Consultation: neurology Subjective Feels better, walks steadier, speech is getting clearer Objective Vital Signs Date Time Temp Pulse Resp B/P Pulse Ox O2 Delivery O2 Flow Rate FiO2 02/11/17 11:16 98.3 76 18 128/81 95 02/09/17 01:31 Room Air Intake and Output 02/10/17 02/10/17 02/11/17 15:00 23:00 07:00 Intake Total 1350 ml 700 ml Output Total 3000 ml 650 ml Balance -1650 ml 50 ml Exam Neuro Exam: AOX3, fluent speech, min slow, but no dysarthria CN II-Xii intact, except fixed 2 mm pupils, fine endgaze nystagmus upgaze and horizontal Motor normal bulk, tone, strength Sensory pain and vibration OK, no sensory level Coordination OK Results/Medications Result Diagram: 02/09/17 1400 02/09/17 1400 Medications Current Medications Acetaminophen (Tylenol Tab) 650 mg Q4H PRN PO FEVER Last administered on t 17:34; Admin Dose 650 MG; Start 02/09/17 at 01:30 Ondansetron HCl (Zofran Inj) 4 mg Q4H PRN IV NAUSEA AND/OR VOMITING; Start at 01:30 Assessment/Plan Chief Complaint/Hosp Course A/P: hx of febrile illness 10 week ago x 1 week, pt presented with dysathria, unsteadiness of gait, urinary retention, normal MRI brtain and spine w/o contrast. Symptoms are improving. Plan: LP, MRI postcontrast Problems: EWA NGUYEN MD Feb 11, 2017 11:40
[2017-02-11 14:45] LABS: # OF CELLS COUNTED 100
[2017-02-11 15:31] LABS: GLUCOSE,CSF 50 mg/dl (50-80)
[2017-02-11 15:59] LABS: %CREANATED RBC CSF 0 %; CSF COLOR COLORLESS; CSF VOLUME 9.5 ml; CSF#TUBE COUNT TUBE#4; CSF#TUBES REC'D 4
--- NOTE | 2017-02-11 16:15 | RADRPT ---
PROCEDURE: MR Brain without contrast. CLINICAL INDICATION: Slurred speech. TECHNIQUE: Multiplanar multisequence precontrast axial T1, postcontrast axial T1, postcontrast coron al T1 sequences. performed before and after the administration of 10 cc of Magnevist. COMPARISON: Noncontrast MRI of the brain from February 08, 2017. FINDINGS: Please refer to recent noncontrast MRI of the brain report. There is no abnormal intracranial enhancement. IMPRESSION: 1. No abnormal intracranial enhancement. 2. Please refer to recent noncontrast MRI of the brain report. Further findings as detailed above. RPTAT: HVF .Ry Beth MD, MD Date Time Electronically viewed and signed by .Ry Beth MD, on 02/11/2017 16:15 .F/
--- NOTE | 2017-02-11 16:19 | RADRPT ---
PROCEDURE: MR Cervical Spine contrast. CLINICAL INDICATION: Urinary retention. TECHNIQUE: Multiplanar multisequence MRI of the cervical spine was performed before and following t he intravenous administration of 10 cc of Magnevist. COMPARISON: Noncontrast MRI of the cervical spine from February 10, 2017. FINDINGS: Please refer to recent noncontrast MRI of the cervical spine. There is no abnormal spinal cord enhancement. IMPRESSION: 1. No abnormal spinal cord enhancement. 2. Please refer to recent noncontrast MRI of the cervical spine. Further findings as detailed above. RPTAT: HVF .Ry Beth MD, Date Time Electronically viewed and signed by .Ry Beth MD, on 02/11/2017 16:19 .F/
--- NOTE | 2017-02-11 16:21 | RADRPT ---
PROCEDURE: MR thoracic Spine contrast. CLINICAL INDICATION: Urinary retention. TECHNIQUE: Multiplanar multisequence MRI of the thoracic spine was performed before and following t he intravenous administration of 10 cc of Magnevist. COMPARISON: Noncontrast MRI of the thoracic spine from February 10, 2017. FINDINGS: Please refer to recent noncontrast MRI of the cervical spine. There is no abnormal spinal cord enhancement. IMPRESSION: 1. No abnormal spinal cord enhancement. 2. Please refer to recent noncontrast MRI of the thoracic spine. Further findings as detailed above. RPTAT: HVF .Ry Beth MD, Date Time Electronically viewed and signed by .Ry Beth MD, on 02/11/2017 16:20 .F/
--- NOTE | 2017-02-11 17:00 | RADRPT ---
PROCEDURE: Lumbar puncture CLINICAL INDICATION: Headaches. Slurred speech. Fever. TECHNIQUE: Risks benefits and alternatives of the procedure were explained to the patient. Inform ed written consent was obtained. The overlying skin of the lower back was prepped and draped in the usual sterile fashion. Utilizing fluoroscopic guidance, a skinny 22-gauge lumbar spinal needle was introduced into the spinal canal at the L4-5 level without difficulty. 10 cc of clear cerebrospina l fluid was obtained. No complications occurred. The patient was instructed to lie flat for the ne xt 4-6 hours to reduce the risk of spinal headache. Fluoro time: 0.4 minutes. Estimated cumulative dose: 6.92 mGy. COMPARISON: None available FINDINGS: Successful lumbar puncture under fluoroscopic guidance. IMPRESSION: Successful lumbar puncture under fluoroscopic guidance. RPTAT: QQ .Aleksandr Adams MD, Date Time Electronically viewed and signed by .Aleksandr Adams MD, MD on 02/11/2017 16:59 .A/
[2017-02-11 19:44] LABS: %CREANATED RBC CSF 0 %; CSF COLOR COLORLESS; CSF VOLUME 9.5 ml; CSF#TUBE COUNT TUBE#2; CSF#TUBES REC'D 4
[2017-02-12] VITALS (8 sets, daily range): BP systolic 123–129; BP diastolic 77–85; PULSE 66–82; RESP 16–20
--- NOTE | 2017-02-12 10:41 | PN ---
Date/Time of Note Date/Time of Note DATE: 02/12/17 TIME: 10:39 Assessment/Plan VTE Prophylaxis VTE Prophylaxis Intervention: ambulation Lines/Catheters IV Catheter Type (from Nrsg): Saline Lock Central line still needed: No Urinary Cath still in place: No Assessment/Plan Assessment/Plan 1. neuro: speech difficulty, gait difficulty, urinary retention, at this point favor a post-viral cause of this, symptoms eem to be abating. will plan to dc lamar increase activity Subjective 24 Hr Interval Summary Free Text/Dictation no complaints, speech and walking improving Exam/Review of Systems Vital Signs Vitals Vital Signs Date Time Temp Pulse Resp B/P Pulse Ox O2 Delivery O2 Flow Rate FiO2 02/12/17 08:18 66 02/12/17 07:24 98.0 16 123/77 97 02/09/17 01:31 Room Air Intake and Output 02/11/17 02/11/17 02/12/17 15:00 23:00 07:00 Intake Total 800 ml Output Total 950 ml Balance -150 ml Exam Constitutional: alert Head: atraumatic, normocephalic Respiratory: clear to auscultation Cardiovascular: regular rate and rhythm Gastrointestinal: soft Results Result Diagram: 02/09/17 1400 02/09/17 1400 Results 24 hrs Laboratory Tests Test 02/11/17 14:22 CSF Tubes Submitted 4 CSF Volume 9.5 CSF Appearance CLEAR CSF Color COLORLESS CSF WBC 28 *H CSF RBC 0 CSF Cell Count Tube # TUBE#2 CSF Total Cells Counted 100 CSF Neutrophils % 0 CSF Lymphocytes % 97 CSF Monocytes % 3 CSF Crenated Cells 0 CSF Glucose 50 CSF Total Protein 87 H Medications Medications Current Medications Acetaminophen (Tylenol Tab) 650 mg Q4H PRN PO FEVER Last administered on t 17:34; Admin Dose 650 MG; Start 02/09/17 at 01:30 Ondansetron HCl (Zofran Inj) 4 mg Q4H PRN IV NAUSEA AND/OR VOMITING; Start at 01:30 ZAK FAYE MD Feb 12, 2017 10:40
--- NOTE | 2017-02-12 11:57 | PDOCDIS ---
Discharge Instructions CONDITION Patient Condition: Good HOME CARE INSTRUCTIONS: Diet Instructions: RegularSpecial Diet: CARDIAC ACTIVITY: Activity Restrictions: Slowly Increase Activity FOLLOW UP/APPOINTMENTS Follow-up Plan 1. follow up with dr aleman in 1-2 weeks 2. if you go home with a lamar catheter, we will arrange for a nurse to come to your home to help with this and refer you to urology to have catheter removed in a few days ZAK FAYE MD Feb 12, 2017 11:57
--- NOTE | 2017-02-12 14:32 | DS ---
Date/Time of Note Date/Time of Note DATE: 02/12/17 TIME: 14:29 Discharge Summary Admission/Discharge Info Admit Date/Time Feb 09, 2017 at 01:11 Discharge Date/Time 02/12/17 Discharge Diagnosis 1. post-viral neuritis, resolving Patient Condition: Good Consults dr aleman - neurology Hx of Present Illness patient presents with difficulty with slow NOT slurred speech. He has difficulty speakin gin the usual pace, but words are clear and he articulates what he means to say in addition he has utrinary retention for the last 3 days, s/p lamar. He denies dysuria, denies stool retention, denies saddlea anasthesia, states that there are soem difficulties with walkiong and feeling unsteady but no falls he does acjknowledge a 1 week history of undiagnosed high fevers which spontaenously resolved aound 1 week ago. Hospital Course pt observed in hospital, MRI of brain and spinal cord with and without contast do not show any structural lesion. Lumbar punctures shows a mildly inflammatory picture. The current belief is that patient's neurologic symptoms are viral or post-viral in origin and spontaneously resolving. Patient urinary retention similarly spontanseously resolved t Home Meds Active Scripts Acetamin/Butalbital/Caffeine* (Fioricet*) [id number] Tab, 1 TAB PO Q6H Y for PAIN, #30 TAB Prov:LEWIS MONTENEGRO MD 02/08/17 Discontinued Scripts Ciprofloxacin Hcl* (Ciprofloxacin Hcl*) 500 Mg Tablet, 500 MG PO BID for 10 Days , TAB Prov:RON GATES 02/08/17 Primary Care Provider Care Physician No Primary Time spent on discharge: > 30 minutes Pending Labs HSV csf pcr cocci ab ZAK FAYE MD Feb 12, 2017 14:32
== END 2017-02-12 14:32 | disposition home or self-care (01) | DRG 74 ==
LOC: FTE 20:42 → TEL 02-09 01:11
PROVIDERS: ADMIT Internal Medicine; ATTEND Internal Medicine
PROC: 009U3ZX Drainage of Spinal Canal, Percutaneous Approach, Diagnostic (ICD-10-PCS; principal; 2017-02-11)
PROC: B01BZZZ Fluoroscopy of Spinal Cord (ICD-10-PCS; 2017-02-11)
DX: G58.8 Other specified mononeuropathies (principal); B97.89 Other viral agents as the cause of diseases classified elsewhere; R79.1 Abnormal coagulation profile; R33.9 Retention of urine, unspecified; Z88.0 Allergy status to penicillin
CPT/HCPCS: 36415; 70552; 71010; 72141; 72142; 72146; 72147; 72148; 80053; 80061; 80306; 80307; 81003; 82040; 82042; 82140; 82607; 82746; 82784; 82945; 82962; 83605; 83873; 83916; 84153; 84154; 84157; 84484; 85025; 85335; 85610; 85730; 86038; 86403; 86430; 86592; 86694; 86703; 87040; 87070; 87086; 87102; 87210; 89050; 93005; 96360; 96361; 97116; 97162; 97530; J7030